=== PATIENT | female | born 1955 | race Caucasian/White ===

== ENCOUNTER 2018-06-22 15:58 | Emergency (ER) | payer MEDICARE, SELFPAY ==
[2018-06-22] VITALS (8 sets, daily range): BP systolic 94–157; BP diastolic 64–92; PULSE 79–116; RESP 14–20; TEMP 35.8–37.9; O2SAT 97–99; BMI 30.2
--- NOTE | 2018-06-22 16:30 | EKG12_ITS ---
Test Reason : FEVER/FLU S/X Blood Pressure : / mmHG Vent. Rate : 080 BPM Atrial Rate : 080 BPM P-R Int : 158 ms QRS Dur : 090 ms QT Int : 372 ms P-R-T Axes : 054 031 037 degrees QTc Int : 429 ms Normal sinus rhythm Nonspecific ST abnormality Abnormal ECG Confirmed by ADDIE HARDWICK, JONNIE ([id number]), sports editor DANIEL WYNN ([id number] on 06/26/2018 1:32:28 PM Referred By: DC Confirmed By:JONNIE REAL MD
--- NOTE | 2018-06-22 16:31 | RAD_ITS ---
STUDY: X-RAY CHEST REASON FOR EXAM: Female, 62 years old. Fever. TECHNIQUE: Portable chest. COMPARISON: 12/09/2014. FINDINGS: The lungs are clear and expanded. There is no demonstrated pleural abnormality. Normal size heart. Normal mediastinum and kelsy. Normal visualized pulmonary arteries. Normal visualized aortic arch and descending thoracic aorta. Normal visualized thoracic spine. Normal visualized ribs, clavicles, and shoulders. Surgical clips are noted in the right axilla. Soft tissues are otherwise unremarkable. RAD/Chest 1 View (Portable) IMPRESSION: Negative chest. Electronically Signed: Larissa Solitario MD at 18:10 EST Tel , Service support ,
[2018-06-22 17:12] LABS: Mucous, Urine 0 SEEN /hpf (<or=2+); Red Blood Cells-Urine 0 SEEN /hpf (0-5)
[2018-06-22] MEDS: 0.9% Normal Saline 1,000 ML IV.SOLN. 1000 ML IV (17:18)
[2018-06-22 17:22] LABS: International Normalized Ratio 1.1; Prothrombin Time (Protime)PT. 14.1 SECONDS (11.7-14.9)
[2018-06-22 17:23] LABS: Absolute Lymphocyte Count 0.46 X10^3/ul (0.83-4.51); Absolute Neutrophil Count 2.5 X10^3/uL (2.0-7.7); Basophil# 0.01 X10^3/uL; Basophil% 0.3 % (0-1); Hematocrit 34.5 % (37-47); Hemoglobin 11.1 g/dl (12.0-15.0); Lymphocyte # 0.46 X10^3/ul (4.0); Lymphocyte % 14.4 % (19-41); Mean Corp Hgb Conc 32.2 g/gl (32-36); Mean Corpuscular Hgb 31.3 pg (27.0-32.0); Mean Corpuscular Volume 97.2 fL (81-99); Mean Platelet Vol. 9.8 fl (6.2-12.0); Monocyte# 0.25 X10^3/uL; Monocyte% 7.8 % (0-10); Neutrophil # 2.47 X10^3/uL (2.7-7.7); Neutrophil % 77.5 % (47-70); Partial Thromboplast Time 35.1 Seconds (24.1-36.2); Platelet Count 124 K/mm3 (150-450); RBC Distribution Width CV 15.2 % (11.6-14.6); RBC Distribution Width SD 54.3 fl (35.1-43.9); Red Blood Count 3.55 M/mm3 (4.2-5.4); White Blood Count 3.2 K/mm3 (4.4-11.0)
[2018-06-22 17:25] LABS: Color, Urine Yellow (Yellow); Glucose, Dipstick Normal (Normal); Ketone-Dipstick Negative (Negative); Leukocyte Esterase-Dipstick 100 /ul (Negative); Nitrite-Dipstick Negative (Negative); Occult Blood-Urine 50 /ul (Negative); Protein-Dipstick 100 mg/dl (Negative); Specific Gravity, Urine 1.015 (1.002-1.030); Urine Bilirubin Dipstick Negative (Negative); Urine Clarity Sl. Cloudy (Clear); Urine Urobilinogen Normal (Normal)
[2018-06-22 17:26] LABS: Differential Indicated SCAN CRITERIA MET; POSITIVE COUNT NO; POSITIVE DIFFERENTIAL YES; POSITIVE MORPHOLOGY NO
[2018-06-22 17:38] LABS: Differential Comment SCANNED
[2018-06-22 17:41] LABS: Lactic Acid 1.1 mmol/L (0.4-2.0)
[2018-06-22 17:42] LABS: ALB/GLOB Ratio 0.6 RATIO (0.9-2.4); AST(SGOT) 59 U/L (15-37); Alanine Aminotransfer ALT/SGPT 41 U/L (13-56); Albumin, Serum 2.4 g/dL (3.2-5.0); Alkaline Phosphatase 288 U/L (45-117); Anion Gap 9 (5-15); BUN 21 mg/dL (7-18); BUN/Creat Ratio 19.1 RATIO (10-20); Calcium,Total 8.1 mg/dL (8.5-10.1); Chloride 105 mmol/L (98-107); EST Glomerular Filtration Rate 54 mL/min (>60); Est Glom Filt Rate - Afr Amer 65 mL/min (>60); Estimated Creatinine Clearance 44.43 ml/min; Glucose 129 mg/dL (74-106); Protein, Total 6.4 g/dL (6.4-8.2); Sodium Level 137 mmol/L (136-145)
[2018-06-22 17:45] LABS: Amorphous Sediment 2+; Bacteria 2+ /hpf (None Seen); Squamous Epithelial Cells - UA 0-5 SEEN /hpf (5-10); White Blood Cells 5-10 SEEN /hpf (0-5)
--- NOTE | 2018-06-22 19:16 | HP.PCM_ITS ---
History of Present Illness The patient is a 62 year old F [] Past Medical History Past Medical History (Chronic Problems): Chronic Problems GERD (gastroesophageal reflux disease) (Chronic) Metastatic melanoma (Chronic) Allergies cetrorelix [From Cetrotide] Allergy (Verified 06/22/18 16:06) Other Home Medications: Ambulatory Orders Medication Instructions Recorded Dexamethasone [Decadron] 4 mg PO DAILY@0800 12/09/14 Glimepiride [Amaryl] 2 mg PO DAILY 12/09/14 Pantoprazole Sodium [Protonix] 1 tab PO DAILY 12/09/14 Docusate Sodium [Colace] 100 mg PO DAILY 12/10/14 Multivitamin [Animal Shapes] 1 tab PO DAILY 12/10/14 [place]-3 Fatty Acids/Fish Oil [Fish 1 each PO DAILY 12/10/14 Oil 1,000 mg Softgel] Surgical History: - - Gamma knife surgery for metastatic lesion from skin melanoma. 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 Smoking Status: Never smoker - *Family History Maternal History Items: No pertinent history Paternal History Items: Diabetes, Heart Disease - Physical Exam Vital Signs Temp Pulse Resp BP Pulse Ox 98.5 F 92 16 109/91 H 99 06/22/18 18:52 06/22/18 18:52 06/22/18 18:52 06/22/18 18:52 06/22/18 18:52 Oxygen Delivery Method Room Air Weight: 171 lb Body Mass Index (BMI) 30.2 Finger Stick Blood Glucose 293 Laboratory Tests Past 24 Hrs 06/22/18 06/22/18 06/22/18 16:45 16:45 16:45 WBC 3.2 L RBC 3.55 L Hgb 11.1 L Hct 34.5 L MCV 97.2 MCH 31.3 MCHC 32.2 RDW 15.2 H RDW Differential 54.3 H Plt Count 124 L MPV 9.8 Immature Gran % (Auto) 0.000 Neut % (Auto) 77.5 H Lymph % (Auto) 14.4 L [place]ulk[place] % (Auto) 7.8 Eos % (Auto) 0.0 Baso % (Auto) 0.3 Absolute Neuts (auto) 2.5 Absolute Lymphs (auto) 0.46 L Total Counted Not Reportable Differential Comment SCANNED PT 14.1 INR 1.1 APTT 35.1 Sodium 137 Potassium 3.0 L Chloride 105 Carbon Dioxide 23.0 Anion Gap 9 BUN 21 H Creatinine 1.10 H Estim Creat Clear Calc 44.43 Est GFR (MDRD) Af Amer 65 Est GFR (MDRD) Non-Af 54 L BUN/Creatinine Ratio 19.1 Glucose 129 H Lactic Acid Calcium 8.1 L Total Bilirubin 0.30 AST 59 H ALT 41 Alkaline Phosphatase 288 H Total Protein 6.4 Albumin 2.4 L Globulin 4.0 Albumin/Globulin Ratio 0.6 L Urine Color Urine Clarity Urine pH Ur Specific [place] Urine Protein Urine Glucose (UA) Urine Ketones Urine Occult Blood Urine Nitrite Urine Bilirubin Urine Urobilinogen Ur Leukocyte Esterase Urine RBC Urine WBC Ur Squamous Epith Cells Amorphous Sediment Urine Bacteria Urine Mucus 06/22/18 06/22/18 16:45 17:05 WBC RBC Hgb Hct MCV MCH MCHC RDW RDW Differential Plt Count MPV Immature Gran % (Auto) Neut % (Auto) Lymph % (Auto) [place] % (Auto) Eos % (Auto) Baso % (Auto) Absolute Neuts (auto) Absolute Lymphs (auto) Total Counted Differential Comment PT INR APTT Sodium Potassium Chloride Carbon Dioxide Anion Gap BUN Creatinine Estim Creat Clear Calc Est GFR (MDRD) Af Amer Est GFR (MDRD) Non-Af BUN/Creatinine Ratio Glucose Lactic Acid 1.1 Calcium Total Bilirubin AST ALT Alkaline Phosphatase Total Protein Albumin Globulin Albumin/Globulin Ratio Urine Color Yellow Urine Clarity Sl. Cloudy Urine pH 6.0 Ur Specific [place] 1.015 Urine Protein 100 H Urine Glucose (UA) Normal Urine Ketones Negative Urine Occult Blood 50 H Urine Nitrite Negative Urine Bilirubin Negative Urine Urobilinogen Normal Ur Leukocyte Esterase 100 H Urine RBC 0 SEEN Urine WBC 5-10 SEEN Ur Squamous Epith Cells 0-5 SEEN Amorphous Sediment 2+ Urine Bacteria 2+ Urine Mucus 0 SEEN Assessment/Plan All Active Problems Brain metastasis (Acute)
--- NOTE | 2018-06-22 19:18 | ED.VISSUMM ---
- ER Visit Summary Date of Service: 06/22/18 Chief Complaint: Fevers History of Present Illness: The patient is a 62 F who has metastatic melanoma and is on chemotherapy. Her oncologist is Dr. Tee Miguel at the [facility]. She presents today with fevers, chills, and shakes. She denies any respiratory symptoms, GI symptoms, urinary symptoms, rash or skin changes. Physical Examination: Afebrile and vital signs unremarkable. Alert and oriented. No acute distress. Heart regular. Lungs clear. Abdomen soft. Skin appears normal. Test Results: EKG shows sinus rhythm at a rate of [address] abnormality. No sign of acute infarction pattern. White count 3.2 and hemoglobin 11.1 and platelets 124. Absolute neutrophil count 2.5. Potassium 3.0. Glucose 129, BUN 21, creatinine 1.1, alkaline phosphatase 288, AST 59. Coags normal. Urinalysis shows signs of infection. Lactate 1.1. Cultures pending. Chest x-ray negative. Emergency Department Course and Treatment: Patient had neutropenic precautions on arrival. Sepsis orders were placed. She was treated with fluid bolus. On reevaluation, the patient was having chills and shivering. She does not meet criteria for neutropenic fever, but her neutrophil count is only 2.5. She has signs of a possible UTI. Cultures are pending. I did start broad-spectrum antibiotics with Zosyn and vancomycin. I am recommending admission for IV antibiotics and monitoring. I spoke with the hospitalist who will admit for further care. Treatment Plan: As above Disposition: Admission Impression: 1. Melanoma 2. UTI 3. Hypokalemia This note was generated with [employer] dictation software. It may contain incorrect words, spelling, and punctuation that were not noted in review of the chart prior to signing ED Disposition - Plan for ED Patient: Referrals: Pranav Toscano MD [Primary Care Provider] -
--- NOTE | 2018-06-22 19:21 | ED.DCSUM_ITS ---
- ER Visit Summary Date of Service: 06/22/18 Chief Complaint: Fevers History of Present Illness: The patient is a 62 F who has metastatic melanoma and is on chemotherapy. Her oncologist is Dr. Tee Miguel at the [facility]. She presents today with fevers, chills, and shakes. She denies any res piratory symptoms, GI symptoms, urinary symptoms, rash or skin changes. Physical Examination: Afebrile and vital signs unremarkable. Alert and oriented. No acute distress. Heart regular. Lungs clear. Abdomen soft. Skin appears normal. Test Results: EKG shows sinus rhythm at a rate of [address] abnormality. No sign of acute infarction pattern. White count 3.2 and hemoglobin 11.1 and platelets 124. Absolute neutrophil count 2.5. Potassium 3.0. Glucose 129, BUN 21, creatinine 1.1, alkaline phosphatase 288, AST 59. Coags normal. Urinalysis shows signs of infection. Lactate 1.1. Cultures pending. Chest x-ray negative. Emergency Department Course and Treatment: Patient had neutropenic precautions on arrival. Sepsis orders were placed. She was treated with fluid bolus. On reevaluation, the patient was having chills and shivering. She does not meet criteria for neutropenic fever, but her neutrophil count is only 2.5. She has signs of a possible UTI. Cultures are pending. I did start broad-spectrum antibiotics with Zosyn and vancomycin. I am recommending admission for IV antibiotics and monitoring. I spoke with the hospitalist who will admit for further care. Treatment Plan: As above Disposition: Admission Impression: 1. Melanoma 2. UTI 3. Hypokalemia This note was generated with [employer] dictation software. It may contain incorrect words, spelling, and punctuation that were not noted in review of the chart prior to signing ED Disposition - Plan for ED Patient: Referrals: Pranav Toscano MD [Primary Care Provider] -
--- NOTE | 2018-06-22 20:20 | NURSING ---
ACCEPTED TO [address] 15 REPORT
[2018-06-22] MEDS: Acetaminophen 500 MG Tablet 1000 MG PO (20:24)
== END 2018-06-22 21:18 | disposition short-term general hospital (02) ==
PROVIDERS: Emergency Provider Emergency Medicine; Family Provider Family Medicine; PCP Family Medicine
DX: C79.9 Secondary malignant neoplasm of unspecified site (principal); N39.0 Urinary tract infection, site not specified; E87.6 Hypokalemia; K21.9 Gastro-esophageal reflux disease without esophagitis; Z79.899 Other long term (current) drug therapy
CPT/HCPCS: 71045; 80053; 81001; 83605; 85025; 85610; 85730; 87040; 87077; 87086; 87088; 87804; 93005; 96361; 96365; 96366; 96368; 99285; J7030; J7050; A4216